=== PATIENT | male | born 1995 | race African-American/Black ===

== ENCOUNTER 2020-10-26 11:39 | Emergency (ER) | payer SELFPAY ==
[~2020-10-26] VITALS: Ht 175.3 cm; Wt 86.0 kg
[2020-10-26] MEDS ORDERED: SODIUM CHLORIDE 0.9% 1,000 ML IV SCH ×2 (12:00)
[2020-10-26] MEDS ORDERED: LEVETIRACETAM 1000MG PREMIX 100 ML IV SCH (12:00)
[2020-10-26 12:20] LABS: BASOPHILS % 0.9 % (0.0-2.0); EOSINOPHILS % 0.4 % (0.0-5.0); HEMATOCRIT. 54.8 % (42.0-52.0); HEMOGLOBIN. 18.8 g/dL (14.0-18.0); LYMPHOCYTES % 51.5 % (20.0-50.0); MEAN CORPUSCULAR HEMOGLOBIN 30.4 pg (28.0-32.0); MEAN CORPUSCULAR VOLUME 88.6 fL (80.0-94.0); MONOCYTES % 9.6 % (2.0-8.0); NEUTROPHILS % 37.6 % (40.0-76.0); PLATELET 250 x1000/uL (130-400); RED BLOOD CELL COUNT 6.18 mill/uL (4.7-6.1); RED CELL DISTRIBUTION WIDTH 12.6 % (11.6-14.6)
[2020-10-26 12:27] LABS: CHLORIDE 104 mEq/L (98-107)
[2020-10-26 15:18] LABS: CLARITY URINE CLEAR (CLEAR); COLOR URINE YELLOW (YELLOW); KETONES URINE NEGATIVE (NEGATIVE); LEUKOCYTE ESTERASE URINE NEGATIVE (NEGATIVE); NITRITE URINE NEGATIVE (NEGATIVE); OCCULT BLOOD URINE TRACE (NEGATIVE); PROTEIN URINE NEGATIVE (NEGATIVE); SPECIFIC GRAVITY URINE 1.009 (1.005-1.030); UROBILINOGEN URINE 0.2 E.U./dL (0.2-1.0)
[2020-10-26 15:28] LABS: *AMPHETAMINES SCREEN URINE NEGATIVE (NEGATIVE); *BARBITURATES SCREEN URINE NEGATIVE (NEGATIVE); *BENZODIAZEPINES SCREEN URINE NEGATIVE (NEGATIVE); *COCAINE SCREEN URINE NEGATIVE (NEGATIVE)
[2020-10-26 15:29] LABS: CANNABINOID URINE SCREEN NEGATIVE (NEGATIVE); METHADONE URINE SCREEN NEGATIVE (NEGATIVE); OPIATES URINE SCREEN NEGATIVE (NEGATIVE); PHENCYCLIDINE URINE SCREEN NEGATIVE (NEGATIVE)
[2020-10-26] MEDS ORDERED: KEPP500 MT (16:15)
[2020-10-26 17:45] VITALS: BP 143/96
== END 2020-10-26 18:24 | disposition home or self-care (01) ==
LOC: ER 11:39
DX: U07.1 COVID-19 (principal); G93.40 Encephalopathy, unspecified; E86.0 Dehydration; R56.9 Unspecified convulsions
CPT/HCPCS: 36415; 70450; 80053; 80305; 81003; 85025; 96365; 96366; 99291; J1953

== ENCOUNTER 2021-07-19 16:15 | Emergency (ER) | payer OTHER ==
[~2021-07-19] VITALS: Ht 172.7 cm; Wt 73.0 kg
[~2021-07-19 16:15] MED LIST: KEPP500 MT
[2021-07-19] MEDS ORDERED: LEVETIRACETAM 1000MG PREMIX 100 ML IV ONE (16:45)
[2021-07-19 17:38] LABS: BASOPHILS % 0.7 % (0.0-2.0); EOSINOPHILS % 0.9 % (0.0-5.0); HEMATOCRIT. 46.2 % (42.0-52.0); HEMOGLOBIN. 15.5 g/dL (14.0-18.0); LYMPHOCYTES % 22.4 % (20.0-50.0); MEAN CORPUSCULAR HEMOGLOBIN 30.3 pg (28.0-32.0); MEAN CORPUSCULAR VOLUME 90.1 fL (80.0-94.0); MONOCYTES % 7.9 % (2.0-8.0); NEUTROPHILS % 68.1 % (40.0-76.0); PLATELET 203 x1000/uL (130-400); RED BLOOD CELL COUNT 5.13 mill/uL (4.7-6.1); RED CELL DISTRIBUTION WIDTH 12.7 % (11.6-14.6)
[2021-07-19 17:44] LABS: CHLORIDE 113 mEq/L (98-107)
[2021-07-19 17:58] LABS: ETHANOL BLOOD < 10 mg/dL
[2021-07-19 20:25] VITALS: BP 140/99
== END 2021-07-19 20:30 | disposition home or self-care (01) ==
LOC: ER 16:15
DX: R56.9 Unspecified convulsions (principal)
CPT/HCPCS: 36415; 80053; 80320; 82962; 85025; 96365; 96366; 99285; J1953; G0480

== ENCOUNTER 2023-10-07 10:22 | Emergency (ER) | payer SELFPAY ==
[~2023-10-07] VITALS: Ht 177.8 cm; Wt 70.0 kg
[2023-10-07 10:27] VITALS: O2SAT 97
[2023-10-07 11:17] VITALS: BP 133/87; PULSE 105; RESP 20; TEMP 98.6
== END 2023-10-07 15:38 | disposition home or self-care (01) ==
LOC: ER 10:22
DX: G40.909 Epilepsy, unspecified, not intractable, without status epilepticus (principal)
CPT/HCPCS: 99283; Z7610